=== PATIENT | male | born 1965 | race Caucasian/White ===

== ENCOUNTER 2021-05-01 04:25 | Day surgery (SDC) | payer OTHER ==
[2021-04-28 08:35] VITALS: BMI 34.3
[2021-05-01] MEDS ORDERED: MIDAZOLAM HCL 2 MG/2 ML SINGLE DOSE VIAL ONE (14:45)
[2021-05-01] MEDS ORDERED: PROPOFOL 20 ML ONE (14:57)
[2021-05-01 17:22] VITALS: BP 140/78; PULSE 59; TEMP 97.8
== END 2021-05-01 16:15 | disposition home or self-care (01) ==
LOC: JASU-SURG 04:25
PROVIDERS: ATTEND Urology
PROC: 0TF3XZZ Fragmentation in Right Kidney Pelvis, External Approach (ICD-10-PCS; principal; 2021-05-01 13:00)
DX: N20.0 Calculus of kidney (principal)

== ENCOUNTER 2022-10-29 04:19 | Day surgery (SDC) | payer OTHER ==
[2022-10-23 16:22] VITALS: BMI 30.9
[2022-10-29] MEDS ORDERED: MIDAZOLAM HCL 2 MG/2 ML SINGLE DOSE VIAL ONE (10:57)
[2022-10-29 11:40] VITALS: RESP 20
[2022-10-29 12:50] VITALS: BP 104/64; PULSE 66; TEMP 98
== END 2022-10-29 12:51 | disposition home or self-care (01) ==
LOC: JASU-SURG 04:19
PROVIDERS: ATTEND Urology
PROC: 0TF4XZZ Fragmentation in Left Kidney Pelvis, External Approach (ICD-10-PCS; principal; 2022-10-29 10:30)
DX: N20.0 Calculus of kidney (principal)

== ENCOUNTER 2025-05-10 06:18 | Day surgery (SDC) | payer OTHER ==
[2025-05-05 12:23] VITALS: BMI 31.4
[2025-05-10] MEDS ORDERED: ONDANSETRON 4 MG/2 ML VIAL ONE (11:04)
[2025-05-10] MEDS ORDERED: MIDAZOLAM HCL 2 MG/2 ML SINGLE DOSE VIAL ONE (11:05)
[2025-05-10 11:36] VITALS: RESP 18
[2025-05-10 12:48] VITALS: BP 120/74; PULSE 66; TEMP 98
== END 2025-05-10 12:25 | disposition home or self-care (01) ==
LOC: JASU-SURG 06:18
PROVIDERS: ATTEND Urology
PROC: 0TF3XZZ Fragmentation in Right Kidney Pelvis, External Approach (ICD-10-PCS; principal; 2025-05-10 10:30)
DX: N20.0 Calculus of kidney (principal)